=== PATIENT | male | born 1995 | race African-American/Black ===

== ENCOUNTER 2022-11-24 02:38 | Emergency (ER) | payer SELFPAY ==
[2022-11-24] MEDS ORDERED: Lidocaine 1% w/Epinephrine 1:100K 20 ML VIAL ONE (02:44)
[2022-11-24 03:31] LABS: #Eosinphils 0.1 thou/uL (0.0-0.7); #Monocytes 0.6 thou/uL (0.11-0.59); #Neutrophils 2.4 thou/uL (1.40-6.50); %Basophils 0.8 % (0.0-1.0); %Eosinophils 2.1 % (0.0-10.0); %Lymphocytes 41.2 % (21.0-51.0); %Monocytes 10.5 % (0.0-10.0); %Neutrophils 45.2 % (42.0-75.0); Hematocrit 40.8 % (42.0-52.0); Mean Corpuscular HGB CONC 34.3 g/dL (32.0-36.0); Mean Corpuscular Volume 87.6 fl (78.0-98.0); Mean Platelet Volume 10.1 fL (7.4-10.4); Platelet Count 210 10x3/uL (130-400); RBC Distribution Width 13.2 % (11.5-14.5); Red Blood Cell (RBC) Count 4.66 mill/uL (4.70-6.10); White Blood Cell (WBC) Count 5.2 10x3/uL (4.8-10.8)
[2022-11-24 03:45] LABS: PTT 24.9 sec (22.9-36.1); Prothrombin Time 13.8 sec (12.0-14.7)
[2022-11-24 03:58] LABS: ALT (SGPT) 15 U/L (8-55); AST (SGOT) 23 U/L (5-34); Albumin 3.3 g/dL (3.5-5.0); Alkaline Phosphatase 45 U/L (40-110); Anion Gap 15 mmol/L (10-20); BUN (Urea Nitrogen) 8 mg/dL (8.9-20.6); Bilirubin, Total 0.2 mg/dL (0.2-1.2); Calc. Creatinine Clearance 0 mL/min (70-130); Carbon Dioxide 18 mmol/L (22-29); Chloride 109 mmol/L (98-107); Estimated GFR 77; Globulin 2.5 g/dL (2.4-3.5); Glucose 106 mg/dL (70-105); Potassium 3.6 mmol/L (3.5-5.1); Protein, Total 5.8 g/dL (6.0-8.3); Sodium 138 mmol/L (136-145)
[2022-11-24] MEDS ORDERED: Morphine 4 MG/ML VIAL ONE (03:59)
[2022-11-24] MEDS ORDERED: Ondansetron PF 4 MG/2 ML Vial ONE (03:59)
[2022-11-24] MEDS ORDERED: Boostrix 0.5 ML (Tdap) VIAL (>/=7 yrs of age) ONE (04:06)
== END 2022-11-24 04:14 | disposition short-term general hospital (02) ==
LOC: ERS 02:38
DX: S66.921A Laceration of unspecified muscle, fascia and tendon at wrist and hand level, right hand, initial encounter (principal); S65.011A Laceration of ulnar artery at wrist and hand level of right arm, initial encounter; F17.210 Nicotine dependence, cigarettes, uncomplicated; W22.09XA Striking against other stationary object, initial encounter
CPT/HCPCS: 80053; 85025; 85610; 85730; 90471; 90715; 96374; 96375; J2270; J2405